=== PATIENT | female | born 1960 | race Caucasian/White ===

== ENCOUNTER 2017-08-24 07:56 | Inpatient (IN) | payer OTHER, BC ==
[~2017-08-24] VITALS: Ht 166.4 cm; Wt 77.8 kg
[~2017-08-24 07:56] MED LIST: ACET325T21 PO; ASPI-496 PO; BUPIVACAINE/PF 0.25% ONE; CARV-39 PO; DOCU-131 PO; EPINEPHRINE 1 MG/ML, 1ML ONE; HEPARIN 1,000 UNITS/ML, 10ML ONE; HYDR-3343 PO; HYDR25TA6 PO; IBUP200T48 PO; LISI-170 PO; METO10TA82 PO; OXYC5CAP2 PO; OXYC5TAB3 PO; POLY17PO5 PO; VERA120T5 PO
[2017-08-24 09:09] VITALS: BP 131/80
[2017-08-24] MEDS ORDERED: HYDR-3343 PO (09:09)
[2017-08-24] MEDS ORDERED: CARV-39 PO (09:09)
[2017-08-24] MEDS ORDERED: ASPI-496 PO (09:09)
[2017-08-24] MEDS ORDERED: ATOR40TA78 PO (09:09)
[2017-08-24] MEDS ORDERED: HYDR25TA6 PO (09:09)
[2017-08-24] MEDS ORDERED: LACTATED RINGERS 1,000 ML IV SCH (10:00)
[2017-08-24] MEDS ORDERED: PROTAMINE SULFATE 10 MG/ML, 5ML ONE (11:08)
[2017-08-24] MEDS ORDERED: THROMBIN 20,000 UNIT VIAL TP ONE (11:09)
[2017-08-24] MEDS ORDERED: THROMBIN 5,000 UNIT VIAL TP ONE (11:09)
[2017-08-24] MEDS ORDERED: HEPARIN 1,000 UNITS/ML, 10ML ONE (11:09)
[2017-08-24] MEDS ORDERED: FENTANYL PF 250 MCG/5ML ONE (11:35)
[2017-08-24] MEDS ORDERED: MIDAZOLAM 10MG/2 ML ONE (11:35)
[2017-08-24] MEDS ORDERED: ONDANSETRON 2MG/ML, 2ML ONE (11:48)
[2017-08-24] MEDS ORDERED: NEOSTIGMINE 1 MG/ML, 10ML ONE (11:48)
[2017-08-24] MEDS ORDERED: PROPOFOL 10 MG/ML, 20ML ONE (11:48)
[2017-08-24] MEDS ORDERED: DEXAMETHASONE 4 MG/ML, 1ML ONE (11:48)
[2017-08-24] MEDS ORDERED: FENTANYL PF 100 MCG/2ML ONE (11:48)
[2017-08-24] MEDS ORDERED: SUCCINYLCHOLINE 20 MG/ML, 10ML ONE (11:48)
[2017-08-24] MEDS ORDERED: ROCURONIUM 10 MG/ML,10ML ONE (11:48)
[2017-08-24] MEDS ORDERED: CEFAZOLIN 1,000 MG ONE (11:48)
[2017-08-24] MEDS ORDERED: MIDAZOLAM 1 MG/ML, 2ML ONE (11:48)
[2017-08-24] MEDS ORDERED: GLYCOPYRROLATE 0.2MG/1ML, 5ML ONE (11:48)
[2017-08-24] MEDS ORDERED: VISIPAQUE 270 MG/ML, 150ML BOTTLE ONE (12:00)
[2017-08-24] MEDS ORDERED: BUPIVACAINE/PF 0.5% INFIL ONE (12:59)
[2017-08-24] MEDS ORDERED: HEPARIN 1,000 UNITS/ML, 10ML IV ONE (13:00)
[2017-08-24] MEDS ORDERED: ACETAMINOPHEN 325 MG TABLET PO PRN ×2 (13:30→15:00)
[2017-08-24] MEDS ORDERED: LABETALOL 5MG/ML, 20ML IV PRN ×2 (13:30→15:00)
[2017-08-24] MEDS ORDERED: DIAZEPAM 5 MG/ML, 2ML IVPush PRN (13:30)
[2017-08-24] MEDS ORDERED: HYDROcodone/APAP 7.5-325MG/15ML UDC PO PRN (13:30)
[2017-08-24] MEDS ORDERED: METOPROLOL 1 MG/ML, 5ML IV PRN (13:30)
[2017-08-24] MEDS ORDERED: ALBUTEROL SULFATE 2.5 MG/3 ML NPPB PRN (13:30)
[2017-08-24] MEDS ORDERED: EPHEDRINE 50 MG/ML, 1ML IVPush PRN (13:30)
[2017-08-24] MEDS ORDERED: FENTANYL PF 100 MCG/2ML IV PRN (13:30)
[2017-08-24] MEDS ORDERED: OXYcodone 5 MG/5 ML ORAL.SOL UDC PO PRN (13:30)
[2017-08-24] MEDS ORDERED: hydrALAzine 20 MG/ML, 1ML IV PRN ×2 (13:30→15:00)
[2017-08-24] MEDS ORDERED: MEPERIDINE/PF 25MG/0.5ML IVPush PRN (13:30)
[2017-08-24] MEDS ORDERED: ONDANSETRON 2MG/ML, 2ML IVPush PRN (13:30)
[2017-08-24] MEDS ORDERED: HYDROmorphone 1 MG/ML, 1ML IV PRN (13:30)
[2017-08-24] MEDS ORDERED: MIDAZOLAM 1 MG/ML, 2ML IV PRN (13:30)
[2017-08-24] MEDS ORDERED: PROMETHAZINE 25 MG/ML, 1ML IV PRN (13:30)
[2017-08-24] MEDS ORDERED: ACETAMINOPHEN 325 MG TABLET ONE (13:55)
[2017-08-24] MEDS ORDERED: OXYcodone 5 MG/5 ML ORAL.SOL UDC ONE (13:56)
[2017-08-24] MEDS ORDERED: CLOPIDOGREL 75 MG TABLET ONE (13:56)
[2017-08-24] MEDS ORDERED: CLOPIDOGREL 75 MG TABLET PO ONE (14:00)
[2017-08-24] MEDS ORDERED: morphine SULFATE 10 MG/ML, 1ML IV PRN (15:00)
[2017-08-24] MEDS ORDERED: ONDANSETRON 2MG/ML, 2ML IV PRN (15:00)
[2017-08-24] MEDS: LACTATED RINGERS 1,000 ML IV SCH (17:00)
[2017-08-24] MEDS: CARVEDILOL 25 MG TABLET PO SCH (17:55)
[2017-08-24 19:05] VITALS: BP 114/56
[2017-08-24] MEDS: HYDROcodone/APAP 5/325 TABLET PO PRN (19:15)
[2017-08-24] MEDS: CEFAZOLIN PMX 2GM/50ML 50 ML IVPB SCH (20:02)
[2017-08-24] MEDS ORDERED: ATORVASTATIN 40 MG TABLET PO SCH (21:00)
[2017-08-25 00:04] VITALS: BP 106/77
[2017-08-25] MEDS: LACTATED RINGERS 1,000 ML IV SCH (00:23)
[2017-08-25] MEDS: HYDROcodone/APAP 5/325 TABLET PO PRN ×2 (02:04→08:41)
[2017-08-25 02:18] VITALS: BP 112/71
[2017-08-25] MEDS: CEFAZOLIN PMX 2GM/50ML 50 ML IVPB SCH (04:06)
[2017-08-25 05:18] LABS: HEMATOCRIT 35.8 % (34.6-47.8); HEMOGLOBIN 11.9 g/dL (11.7-16.4); WHITE BLOOD COUNT 12.3 x10^3/uL (3.4-10)
[2017-08-25 05:31] LABS: BLOOD UREA NITROGEN 12 mg/dL (7-18)
[2017-08-25] MEDS ORDERED: ASPIRIN 81 MG TABLET EC PO SCH (06:00)
[2017-08-25] MEDS: CARVEDILOL 25 MG TABLET PO SCH (06:12)
[2017-08-25 06:50] VITALS: BP 114/58
[2017-08-25 08:40] VITALS: BP 130/68
[2017-08-25] MEDS ORDERED: ENOXAPARIN 40 MG/0.4 ML SQ SCH (09:00)
[2017-08-25] MEDS ORDERED: HYDROCHLOROTHIAZIDE 25 MG TABLET PO SCH (09:00)
[2017-08-25] MEDS ORDERED: CLOPIDOGREL 75 MG TABLET PO SCH (09:00)
[2017-08-25] MEDS ORDERED: CLOP75TA PO (10:14)
[2017-08-25] MEDS ORDERED: HYDR-3240 PO (10:15)
== END 2017-08-25 11:30 | disposition home or self-care (01) | DRG 272 ==
LOC: ORIP 07:56 → 4NOR 14:38 → DCLOUNGE 08-25 11:00
PROVIDERS: ADMIT Surgery; ATTEND Surgery
PROC: 04V Lower Arteries, Restriction (ICD-10-PCS; 2017-08-24)
PROC: 4A133B1 Monitoring of Arterial Pressure, Peripheral, Percutaneous Approach (ICD-10-PCS; 2017-08-24)
PROC: B4101ZZ Fluoroscopy of Abdominal Aorta using Low Osmolar Contrast (ICD-10-PCS; principal; 2017-08-24 10:00)
DX: I72.8 Aneurysm of other specified arteries (principal); I10 Essential (primary) hypertension; Z87.891 Personal history of nicotine dependence
CPT/HCPCS: 36415; 37236; 80048; 85025; C1894; J0171; J0690; J1100; J1644; J1650; J2250; J2405; J2704; J2710; J2720; J3010; J3490; Q9966; C1751; C1769; C1874; J0330; J7120

== ENCOUNTER 2017-08-25 17:40 | Emergency (ER) | payer OTHER, BC ==
[~2017-08-25] VITALS: Ht 165.1 cm; Wt 76.0 kg
[~2017-08-25 17:40] MED LIST changes: +ATOR40TA78 PO; -BUPIVACAINE/PF 0.25% ONE; +CLOP75TA PO; -EPINEPHRINE 1 MG/ML, 1ML ONE; -HEPARIN 1,000 UNITS/ML, 10ML ONE; +HYDR-3240 PO
[2017-08-25 17:44] VITALS: BP 145/73
== END 2017-08-25 19:04 | disposition home or self-care (01) ==
LOC: ED 19:00
DX: Z48.01 Encounter for change or removal of surgical wound dressing (principal)
CPT/HCPCS: 99282